=== PATIENT | male | born 1965 | race Hispanic/Latino ===

== ENCOUNTER 2018-04-11 10:09 | Inpatient (IN) | payer OTHER ==
[~2018-04-11] VITALS: Ht 165.1 cm; Wt 94.3 kg
[2018-04-11] MEDS ORDERED: SODIUM CHLORIDE 0.9% 1000ML 1,000 ML IV STA (10:41)
[2018-04-11 10:51] LABS: BASOPHILS # (AUTO) 0.1 (0.0-0.1); BASOPHILS % 0.3 % (0.0-1.0); EOSINOPHILS # (AUTO) 0.1 (0.0-0.4); EOSINOPHILS % 0.7 % (0.0-6.0); HEMATOCRIT 45.8 % (38.2-49.6); HEMOGLOBIN 15.2 g/dL (14.0-18.0); LYMPHOCYTES # (AUTO) 1.4 (1.0-3.2); LYMPHOCYTES % 9.1 % (18.0-39.1); MEAN CORPUSCULAR HEMOGLOBIN 29.5 pg (28-32); MEAN CORPUSCULAR HGB CONC 33.2 g/dL (31-35); MEAN CORPUSCULAR VOLUME 88.8 fL (81-99); MONOCYTES # (AUTO) 1.1 (0.2-0.8); MONOCYTES % 6.9 % (4.4-11.3); NEUTROPHILS # (AUTO) 12.7 (2.1-6.9); NEUTROPHILS % 82.4 % (38.7-80.0); PLATELET COUNT 336 x10e3/uL (140-360); RED BLOOD COUNT 5.16 x10e6/uL (4.3-5.7); RED CELL DISTRIBUTION WIDTH 13.3 % (11.7-14.4)
[2018-04-11 10:55] LABS: INR 1.1; PROTHROMBIN TIME 15.2 seconds (11.9-14.5)
[2018-04-11 10:56] LABS: PARTIAL THROMBOPLASTIN TIME 36.8 seconds (23.8-35.5)
[2018-04-11 11:00] LABS: BILIRUBIN,URINE NEGATIVE (NEGATIVE); CLARITY,URINE HAZY (CLEAR); COLOR,URINE YELLOW (YELLOW); KETONES,URINE TRACE (NEGATIVE); LEUKOCYTE ESTERASE ,URINE NEGATIVE (NEGATIVE); NITRITE,URINE NEGATIVE (NEGATIVE); PROTEIN,URINE DIPSTICK NEGATIVE (NEGATIVE); URINE UROBILINOGEN 0.2 mg/dL (0.2 - 1)
[2018-04-11 11:01] LABS: BACTERIA,URINE FEW /HPF; EPITHELIAL CELLS,URINE FEW /LPF; RBC,URINE 0-5 /HPF (0-5)
[2018-04-11 11:03] LABS: ALANINE AMINOTRANSFERASE 20 IU/L (0-55); ALBUMIN/GLOBULIN RATIO 1.1 (0.8-2.0); ALKALINE PHOSPHATASE 73 IU/L (40-150); ANION GAP 15.9 mmol/L (8-16); BLOOD UREA NITROGEN 18 mg/dL (7-26); BUN/CREATININE RATIO 22 (6-25); CALCIUM 9.3 mg/dL (8.4-10.2); CARBON DIOXIDE 23 mmol/L (22-29); CHLORIDE 106 mmol/L (98-107); CREATINE KINASE 139 IU/L (30-200); CREATININE, SERUM 0.83 mg/dL (0.72-1.25); EST GLOMERULAR FILTRATION RATE > 60 ML/MIN (60-); GLUCOSE 136 mg/dL (74-118); LIPASE 8 U/L (8-78); POTASSIUM 3.9 mmol/L (3.5-5.1); SODIUM 141 mmol/L (136-145)
[2018-04-11] MEDS ORDERED: CEFOXITIN 2GM/ D5W 50ML 50 ML IV ONE (11:30)
[2018-04-11] MEDS ORDERED: HYDROMORPHONE 2MG/ML 2 MG/ML ML IV ONE ×3 (11:30→14:15)
[2018-04-11] MEDS ORDERED: ASPIRIN 81 MG CHEW TAB PO ONE (11:30)
[2018-04-11] MEDS ORDERED: ONDANSETRON HCL INJ 2 MG/ML VIAL IV ONE (11:30)
[2018-04-11] MEDS ORDERED: HYDROMORPHONE 2MG/ML 2 MG/ML ML ONE (11:34)
--- NOTE | 2018-04-11 12:11 | Diagnostic Imaging Report ---
EXAM: CT Abdomen and Pelvis WITH contrast INDICATION: Pain COMPARISON: None. TECHNIQUE: Abdomen and Pelvis was scanned utilizing a multidetector helical scanner after administration of IV contrast. Coronal and sagittal reformations were obtained. IV CONTRAST: 100 mL Isovue-370 COMPLICATIONS: None RADIATION DOSE: Total DLP:618 mGy*cm Estimated effective dose: (DLP x 0.015 x size factor) mSv CTDIvol has been reviewed. It is below the limits set by the Radiation Protocol Committee (RPC). Appropriate CT dose reduction techniques were utilized. FINDINGS: Abdomen: Lung Bases: Fluid present distal esophagus. Granuloma right lung base. Bibasilar atelectasis. Solid Organs: Unremarkable. Upper GI Tract: No small bowel obstructive changes. Vascularity: No aortic aneurysm. Lymph Nodes: No suspicious adenopathy. Other: None. Pelvis: Bladder: Unremarkable. Other: None. Colon: Appendix dilated and markedly inflamed with no evidence of perforation/abscess. Bones: No acute findings. IMPRESSION: 1. Appendicitis with no evidence of rupture/abscess. 2. Fluid present distal esophagus suggesting dysmotility and/or reflux. Signed by: Dr. Red Pinto MD on 04/11/2018 12:08 PM
[2018-04-11] MEDS ORDERED: ACETAMINOPHEN 1000 MG/100 ML 100 ML IV ONE (12:15)
[2018-04-11] MEDS ORDERED: ACETAMINOPHEN 1000 MG/100 ML IV ONE (12:30)
--- OUTSIDE RECORDS SUMMARY | 2018-04-11 13:18 | XMS REPORT ---
Author Author [facility] Address Unknown Phone Unavailable Care Team Providers Care Kennel Hand Name Role Phone Jm QIU Unavailable Unavailable Problems This patient has no known problems. Allergies, Adverse Reactions, Alerts This patient has no known allergies or adverse reactions. Medications This patient has no known medications. Results Test Description Test Time Test Comments Text Results Atomic Results Result Comments CT ABDOMEN/PELVIS W 2018-04-11 12:06:00 [facility] [address] [address] Patient Name: ANISHA FRIED MR #: [id number] : 1965 Age/Sex: 52/M Req #: [id number] Adm Physician: Ordered by: ISIS MCQUEEN [employer] Report #: [id number] Location: ER Room/Bed: Procedure: [id number] CT/CT ABDOMEN/PELVIS W Exam Date: Exam Time: REPORT STATUS: Signed EXAM: CT Abdomen and Pelvis WITH contrast INDICATION: Pain COMPARISON: None. TECHNIQUE: Abdomen and Pelvis was scanned utilizing a multidetector helical scanner after administration of IV contrast. Coronal and sagittal reformations were obtained. IV CONTRAST: 100 mL Isovue- 370 COMPLICATIONS: None RADIATION DOSE: Total DLP:618 mGy*cm Estimated effective dose: (DLP x 0.015 x size factor) mSv CTDIvol has been reviewed. It is below the limits set by the Radiation Protocol Committee (RPC). Appropriate CT dose reduction techniques were utilized. FINDINGS: Abdomen: Lung Bases: Fluid present distal esophagus. Granuloma right lung base. Bibasilar atelectasis. Solid Organs: Unremarkable. Upper GI Tract: No small bowel obstructive changes. Vascularity: No aortic aneurysm. Lymph Nodes: No suspicious adenopathy. Other: None. Pelvis: Bladder: Unremarkable. Other: None. Colon: Appendix dilated and markedly inflamed with no evidence of perforation/abscess. Bones: No acute findings. IMPRESSION: 1. Appendicitis with no evidence of rupture/abscess. 2. Fluid present distal esophagus suggesting dysmotility and/or reflux. Signed by: Dr. Red Pinto MD on 04/11/2018 12:08 PM Dictated By: RED PINTO MD [id number] Transcribed By: BERNARDO on 04/11/18 1208 COPY TO: ISIS MCQUEEN NP
[2018-04-11] MEDS: SODIUM CHLORIDE 0.9% 1000ML 1,000 ML IV SCH (13:30)
[2018-04-11] MEDS ORDERED: PIPER-TAZ 3.375 GM / NS 50ML IV SCH (14:00)
[2018-04-11] MEDS: PIPER-TAZ 3.375 GM 50 ML IV SCH ×2 (15:15→22:31)
[2018-04-11] MEDS ORDERED: METHOCARBAMOL750 MG PO (15:41)
[2018-04-11] MEDS ORDERED: ADVAIR DISKUS INH (15:41)
[2018-04-11] MEDS ORDERED: NAPROXEN250 MG PO (15:41)
[2018-04-11 15:50] VITALS: BP 114/61
[2018-04-11 16:00] VITALS: BP 114/61
[2018-04-11] MEDS ORDERED: LACTATED RINGER'S 1,000 ML IV ONE (17:30)
[2018-04-11 18:00] VITALS: BP 114/61
[2018-04-11] MEDS ORDERED: IOPAMIDOL 370 MG/ML 200 ML INFUS..BTL INJ ONE (18:26)
[2018-04-11] MEDS ORDERED: SODIUM CHLORIDE 0.9% 50ML 50 ML ONE (18:26)
[2018-04-11 20:00] VITALS: BP 117/63
[2018-04-11] MEDS: ONDANSETRON HCL INJ 2 MG/ML VIAL IV PRN (22:42)
[2018-04-11] MEDS: MORPHINE SULFATE 2 MG/ML SYR IV PRN (22:42)
[2018-04-11 23:58] VITALS: BP 117/63
[2018-04-12] VITALS (7 sets, daily range): BP systolic 109–137; BP diastolic 56–69
[2018-04-12] MEDS: SODIUM CHLORIDE 0.9% 1000ML 1,000 ML IV SCH ×6 (05:30→19:59)
[2018-04-12] MEDS: PIPER-TAZ 3.375 GM 50 ML IV SCH ×4 (06:42→23:27)
[2018-04-12] MEDS ORDERED: BUPIVACAINE 0.25%/EPI 30ML SDV INJ ONE (06:50)
[2018-04-12] MEDS: ONDANSETRON HCL INJ 2 MG/ML VIAL IV PRN (07:03)
[2018-04-12] MEDS: MORPHINE SULFATE 2 MG/ML SYR IV PRN (07:03)
[2018-04-12] MEDS ORDERED: ACETAMINOPHEN 1000 MG/100 ML 100 ML IV ONE (12:43)
[2018-04-12] MEDS ORDERED: ACETAMINOPHEN 1000 MG/100 ML IV PRN (13:15)
[2018-04-12] MEDS: METRONIDAZOLE 500MG/NS 100ML 100 ML IV SCH (17:50)
[2018-04-13] VITALS (8 sets, daily range): BP systolic 99–137; BP diastolic 58–75
[2018-04-13] MEDS: SODIUM CHLORIDE 0.9% 1000ML 1,000 ML IV SCH ×4 (04:38→22:36)
[2018-04-13 04:42] LABS: BASOPHILS % 0.2 % (0.0-1.0); EOSINOPHILS % 0.1 % (0.0-6.0); HEMATOCRIT 38.6 % (38.2-49.6); HEMOGLOBIN 12.6 g/dL (14.0-18.0); LYMPHOCYTES # (AUTO) 0.7 (1.0-3.2); MEAN CORPUSCULAR HEMOGLOBIN 29.3 pg (28-32); MEAN CORPUSCULAR HGB CONC 32.6 g/dL (31-35); MEAN CORPUSCULAR VOLUME 89.8 fL (81-99); MONOCYTES # (AUTO) 0.9 (0.2-0.8); MONOCYTES % 5.3 % (4.4-11.3); NEUTROPHILS % 89.7 % (38.7-80.0); PLATELET COUNT 287 x10e3/uL (140-360); RED CELL DISTRIBUTION WIDTH 13.5 % (11.7-14.4)
[2018-04-13] MEDS: HYDROMORPHONE 2MG/ML 2 MG/ML ML IV PRN ×3 (04:49→21:22)
[2018-04-13] MEDS: METRONIDAZOLE 500MG/NS 100ML 100 ML IV SCH ×4 (05:04→17:48)
[2018-04-13 05:05] LABS: ANION GAP 10.6 mmol/L (8-16); BLOOD UREA NITROGEN 20 mg/dL (7-26); BUN/CREATININE RATIO 27 (6-25); CALCIUM 8.7 mg/dL (8.4-10.2); CARBON DIOXIDE 24 mmol/L (22-29); CHLORIDE 106 mmol/L (98-107); CREATININE, SERUM 0.73 mg/dL (0.72-1.25); EST GLOMERULAR FILTRATION RATE > 60 ML/MIN (60-); GLUCOSE 124 mg/dL (74-118); POTASSIUM 3.6 mmol/L (3.5-5.1); SODIUM 137 mmol/L (136-145)
[2018-04-13] MEDS: PIPER-TAZ 3.375 GM 50 ML IV SCH ×3 (06:00→17:48)
[2018-04-13 08:03] LABS: LYMPHOCYTES % (MANUAL) 2 % (19-48); MONOCYTES % (MANUAL) 3 % (3.4-9.0); NEUTROPHILS % (MANUAL) 95 % (40-74)
[2018-04-13 08:04] LABS: PLATELET ESTIMATE ADEQUATE; PLATELET MORPHOLOGY COMMENT NORMAL; RBC MORPHOLOGY COMMENT NORMAL
[2018-04-13] MEDS: PANTOPRAZOLE 40 MG 10ML VIAL IV SCH (09:00)
[2018-04-13] MEDS ORDERED: MORPHINE SULFATE INJ 4 MG/ML INJ IV PRN (13:45)
[2018-04-13] MEDS ORDERED: MIDAZOLAM HCL 2 MG/2 ML VIAL ONE (14:47)
[2018-04-13] MEDS ORDERED: MIDAZOLAM HCL 5 MG/ML VIAL ONE (14:47)
[2018-04-13] MEDS ORDERED: FENTANYL CITRATE/PF 100MCG/2 ML INJ ONE (14:47)
[2018-04-13] MEDS ORDERED: MORPHINE SULFATE INJ 10 MG/ML ONE (14:47)
[2018-04-13] MEDS ORDERED: DEXAMETHASONE SOD PHOS INJ 4 MG/ML VIAL ONE (14:52)
[2018-04-13] MEDS ORDERED: SEVOFLURANE INHAL SOLN 250 ML PEN BTL ONE (14:52)
[2018-04-13] MEDS ORDERED: KETOROLAC TROMETHAMINE 30 MG/ML VIAL ONE (14:52)
[2018-04-13] MEDS ORDERED: ROCURONIUM BROMIDE 10 MG/ML 5ML VIAL ONE (14:52)
[2018-04-13] MEDS ORDERED: LIDOCAINE HCL 2% LOCAL INJ 5 ML SDV VIAL INJ ONE (14:52)
[2018-04-13] MEDS ORDERED: NEOSTIGMINE 5 MG/5ML SYR ONE (14:52)
[2018-04-13] MEDS ORDERED: ONDANSETRON HCL INJ 2 MG/ML VIAL ONE (14:52)
[2018-04-13] MEDS ORDERED: PROPOFOL IV EMULSION 10 MG/ML 20 ML VIAL ONE (14:52)
[2018-04-13] MEDS ORDERED: GLYCOPYRROLATE INJ 1MG/ 5 ML SYR ONE (14:52)
[2018-04-14] VITALS (8 sets, daily range): BP systolic 112–143; BP diastolic 60–78
[2018-04-14] MEDS: PIPER-TAZ 3.375 GM 50 ML IV SCH ×4 (00:13→17:28)
[2018-04-14] MEDS: METRONIDAZOLE 500MG/NS 100ML 100 ML IV SCH ×4 (00:57→17:28)
[2018-04-14] MEDS: HYDROMORPHONE 2MG/ML 2 MG/ML ML IV PRN ×2 (05:23→11:37)
[2018-04-14] MEDS: SODIUM CHLORIDE 0.9% 1000ML 1,000 ML IV SCH ×2 (06:26→11:55)
[2018-04-14] MEDS: PANTOPRAZOLE 40 MG 10ML VIAL IV SCH (09:00)
[2018-04-14] MEDS: ACETAMINOPHEN 325 MG TAB PO PRN (17:10)
[2018-04-15] VITALS (8 sets, daily range): BP systolic 110–138; BP diastolic 58–76
[2018-04-15] MEDS: PIPER-TAZ 3.375 GM 50 ML IV SCH ×4 (00:04→17:39)
[2018-04-15] MEDS: ACETAMINOPHEN 325 MG TAB PO PRN (00:04)
[2018-04-15] MEDS: SODIUM CHLORIDE 0.9% 1000ML 1,000 ML IV SCH ×2 (00:45→17:39)
[2018-04-15] MEDS: METRONIDAZOLE 500MG/NS 100ML 100 ML IV SCH ×4 (00:46→18:27)
[2018-04-15] MEDS: PANTOPRAZOLE 40 MG 10ML VIAL IV SCH (10:12)
[2018-04-15] MEDS: HYDROMORPHONE 2MG/ML 2 MG/ML ML IV PRN ×2 (13:08→18:35)
[2018-04-16] VITALS: BP 124/65
[2018-04-16] MEDS: PIPER-TAZ 3.375 GM 50 ML IV SCH ×4 (00:20→18:00)
[2018-04-16] MEDS: METRONIDAZOLE 500MG/NS 100ML 100 ML IV SCH ×4 (00:55→18:41)
[2018-04-16] MEDS: SODIUM CHLORIDE 0.9% 1000ML 1,000 ML IV SCH ×2 (03:06→15:28)
[2018-04-16 04:00] VITALS: BP 109/63
[2018-04-16 08:00] VITALS: BP 133/78
[2018-04-16] MEDS: PANTOPRAZOLE 40 MG 10ML VIAL IV SCH (09:14)
[2018-04-16] MEDS: HYDROMORPHONE 2MG/ML 2 MG/ML ML IV PRN (09:14)
[2018-04-16 12:00] VITALS: BP 121/76
[2018-04-16] MEDS ORDERED: TYLENOL WITH C1 EACH PO (18:57)
[2018-04-16] MEDS ORDERED: LEVAQUIN500 MG PO (18:58)
== END 2018-04-16 20:02 | disposition home or self-care (01) | DRG 343 ==
LOC: ER 10:09 → ERHOLD 13:02 → MED/SURG2 15:53
PROVIDERS: ADMIT Surgery; ATTEND Surgery
PROC: 0DTJ4ZZ Resection of Appendix, Percutaneous Endoscopic Approach (ICD-10-PCS; principal; 2018-04-11)
DX: K35.31 Acute appendicitis with localized peritonitis and gangrene, without perforation (principal)
CPT/HCPCS: 36415; 74177; 80048; 80053; 81001; 82550; 82553; 82948; 83690; 84484; 85025; 85610; 85730; 87086; 88304; 93005; 96367; 99284; C1766; J0694; J1100; J1885; J2001; J2250; J2270; J2405; J2543; J7030; J7120; Q9967